=== PATIENT | female | born 1940 | race Caucasian/White ===

== ENCOUNTER 2016-05-14 14:58 | Emergency (ER) | payer OTHER ==
[~2016-05-14 14:58] MED LIST: ALBUTEROL0.09 MG/A1 INH; AMLODIPINE BES2.5 M1 PO; AMOXICILLIN875 M1 PO; CITRATE OF MAG300 ML PO; DULCOLAX10 M1 RC; GOLYTELY PACKE1 EACH PO; IBUPROFEN600 M1 PO; LIPITOR10 M1 PO; METFORMIN HCL500 M3 PO; METFORMIN500 MG PO; MIRALAX17 G1 PO; Magic mouthwash PO; OMEPRAZOLE20 MG PO; OMEPRAZOLE40 M1 PO; PERCOCET 325 MG1 TA2 PO; PREDNISONE20 M1 PO; PRINIVIL5 M1 PO; ROBITUSSIN W/CO10 ML PO; TESSALON PERLE100 M1 PO; TESSALON PERLE100 MG PO; TRIAMCINOL0.1 %/453 TOP; TYLENOL325 MG PO; VALACYCLOVIR1 GM PO
[2016-05-14 15:54] LABS: ABSOLUTE BASOPHIL COUNT 0 /CUMM (0.0-0.2); ABSOLUTE EOSINOPHIL COUNT 0.1 /CUMM (0.0-0.7); ABSOLUTE GRANULOCYTE CT 12.4 /CUMM (1.4-6.5); ABSOLUTE LYMPH COUNT 1.2 /CUMM (1.2-3.4); ABSOLUTE MONOCYTE COUNT 0.1 /CUMM (0.10-0.60); BASOPHIL % 0 % (0.0-2.0); EOSINOPHIL % 0.4 % (0-5); MEAN CORPUSCULAR HGB 29.3 PG (27.0-31.0); MEAN CORPUSCULAR HGB CONC 33.6 G/DL (33.0-37.0); MEAN CORPUSCULAR VOLUME 87.3 FL (81.0-99.0); MEAN PLATELET VOLUME 7.8 FL (7.4-10.4); PLATELET COUNT 259 /CUMM (130-400); RED BLOOD CELL CT 5.27 /CUMM (4.20-5.40); WHITE BLOOD CELL COUNT 13.8 /CUMM (4.8-10.8)
[2016-05-14 16:04] LABS: GRANULOCYTE % 89.7 % (42.2-75.2)
--- NOTE | 2016-05-14 17:52 | ED GI/GU/ABDOMINAL COMPLAINT ---
History of Present Illness General Chief Complaint: Female Urogenital Problems Stated Complaint: UTI SYMPTOMS Source: patient Exam Limitations: physical impairment (def) Vital Signs & Intake/Output Vital Signs & Intake/Output Vital Signs Date Time Temp Pulse Resp B/P Pulse O2 O2 Flow FiO2 Ox Delivery Rate 05/14 1951 98.8 84 18 175/83 94 Room Air 05/14 1717 97.4 90 20 165/92 93 Room Air 05/14 1511 97.5 98 20 143/74 96 Room Air Allergies Coded Allergies: NO KNOWN ALLERGIES (11/28/15) Reconcile Medications Amlodipine Besylate 2.5 MG TAB 1 TAB PO DAILY HEART (Reported) Amoxicillin 875 MG TABLET 1 TAB PO BID pharyngitis Atorvastatin Calcium (Lipitor) 10 MG TAB 1 TAB PO DAILY CHOLESTEROL (Reported ) Benzonatate (Tessalon Perle) 100 MG CAPSULE 1 CAP PO TID cough Bisacodyl (Dulcolax) 10 MG SUPP.RECT 1 SUP RC DAILY CONSTIPATION Ciprofloxacin HCl (Cipro) 500 MG TABLET 1 TAB PO BID uti Ibuprofen 600 MG TABLET 1 TAB PO Q6PRN PRN pain with food Lisinopril (Prinivil) 5 MG TABLET 1 TAB PO DAILY HTN (Reported) [Magic mouthwash] 5-10 ML PO Q6P PRN sore throat 1:1:1 maalox: viscous lidocaine:benadryl Magnesium Citrate (Citrate Of Magnesia) 300 ML SOLUTION 296 ML PO ONCE CONSTIPATION Metformin HCl 500 MG TABLET 1 TAB PO DAILY DIABETES (Reported) Omeprazole 40 MG CAPSULE.DR 1 CAP PO DAILY GI (Reported) Peg 3350/Na Sulf,Bicarb,Cl/KCl (Golytely Packet) 1 EACH POWD.PACK 1 PAC PO ONCE PRN CONSTIPATION MIX POWDER WITH 8 OZ OF WATER IF CONSTIPATED Polyethylene Glycol 3350 (Miralax) 17 GM POWD.PACK 1 PAC PO DAILY PRN CONSTIPATION dissolve in water Triage Note: PT IS DEAF AND COMMUNICATES THROUGH WRITING ON PAPER, POOR HISTORIAN EVEN THROUGH WRITING. STATES YESTERDAY SHE WENT TO [place] AND THEY GAVE HER A DIAPER BECAUSE THEY DON'T WANT WET PANTS. STATES I THINK THAT THEY GAVE HER MEDICINE THAT IS BURNING HER URINE. MEDICINE IS FOR KIDNEYS. Triage Nurses Notes Reviewed? yes ? n Is pt currently ? No Onset: Abrupt Duration: day(s): (2) Timing: recent history Quality/Severity: burning Location: urethral Radiation: no radiation HPI: 75-year-old female that is def comes into emergency room with complaints of burning with urination. Denies any fever chills back pain vomiting. Denies any chest pain shortness of breath. Patient reports some mild lower abdominal pain. Denies any other associated symptoms. Symptoms began yesterday. (MARLEY SHINE) Past History Travel History Traveled to [place] past 21 day No Medical History Any Pertinent Medical History? see below for history Neurological: DEAF (CONGENITAL) EENT: NONE Cardiovascular: hypertension, hyperlipidemia Respiratory: NONE Gastrointestinal: ACID REFLUX Hepatic: NONE Renal: NONE Musculoskeletal: NONE Psychiatric: NONE Endocrine: diabetes History of CDIFF: No Surgical History Surgical History: cholecystectomy Psychosocial History What is your primary language Hungarian Tobacco Use: Never used ETOH Use: denies use Illicit Drug Use: denies illicit drug use Family History Hx Contributory? No (MARLEY SHINE) Review of Systems Review of Systems Constitutional: Reports: no symptoms. EENTM: Reports: no symptoms. Respiratory: Reports: no symptoms. Cardiovascular: Reports: no symptoms. GI: Reports: see HPI. Genitourinary: Reports: see HPI. Musculoskeletal: Reports: no symptoms. Skin: Reports: no symptoms. Neurological/Psychological: Reports: no symptoms. Hematologic/Endocrine: Reports: no symptoms. Immunologic/Allergic: Reports: no symptoms. All Other Systems: Reviewed and Negative (MARLEY SHINE) Physical Exam Physical Exam General Appearance: well developed/nourished, no apparent distress, alert Head: atraumatic, normal appearance Eyes: Bilateral: normal appearance. Ears, Nose, Throat, Mouth: hearing grossly normal, moist mucous membrane Neck: normal inspection Respiratory: normal breath sounds, no respiratory distress Cardiovascular: regular rate/rhythm Gastrointestinal: soft, tenderness (mild across lower abdomen) Pelvic: normal external exam Back: normal inspection Extremities: normal range of motion Neurologic/Psych: awake, alert, oriented x 3, normal gait Skin: intact, normal color Core Measures ACS in differential dx? No Severe Sepsis Present: No Septic Shock Present: No (MARLEY SHINE) Progress Differential Diagnosis: AAA, appendicitis, biliary colic, bowel obstruction, colon cancer, cholecystitis, diverticulitis, ectopic , gastritis, hepatitis, hernia, ischemic bowel, inflamm bowel dis, intrauterine , kidney stone, Martha-Marycarmen tear, ovarian cyst, ovarian torsion, pancreatitis, PID/cervicitis, SBO, UTI/pyelo Plan of Care: Orders Procedure Date/time Status Add-on Test (ER Only) 05/14 2206 Active Add-on Test (ER Only) 05/14 1629 Active CULTURE,URINE 05/14 1541 Active URINALYSIS 05/14 1513 Complete COMPREHENSIVE METABOLIC PANEL 05/14 1513 Complete CBC WITHOUT DIFFERENTIAL 05/14 1513 Complete Laboratory Tests 05/14/16 1541: Urine Color STRAW, Urine Clarity TURBD H, Urine pH 6.0, Ur Specific [place] 1.025, Urine Protein >=300 H, Urine Ketones NEG, Urine Nitrite NEG, Urine Bilirubin NEG, Urine Urobilinogen 0.2, Ur Leukocyte Esterase LARGE H, Ur Microscopic SEDIMENT EXAMINED, Urine WBC PACKD H, Urine Hemoglobin LARGE H, Urine Glucose NEG 05/14/16 1539: Anion Gap 15, Estimated GFR 44 L, BUN/Creatinine Ratio 20.8, Glucose 141 H, Calcium 9.9, Total Bilirubin 2.4 H, AST 26, ALT 40, Alkaline Phosphatase 108, Total Protein 7.8, Albumin 4.6, Globulin 3.2, Albumin/Globulin Ratio 1.4, CBC w Diff NO MAN DIFF REQ, RBC 5.27, MCV 87.3, MCH 29.3, RDW 13.0, MPV 7.8, Gran % 89.7 H, Lymphocytes % 9.0 L, Monocytes % 0.9 L, Eosinophils % 0.4, Basophils % 0 L, Absolute Granulocytes 12.4 H, Absolute Lymphocytes 1.2, Absolute Monocytes 0.1 L, Absolute Eosinophils 0.1, Absolute Basophils 0, PUBS MCHC 33.6 Microbiology 05/14 1541 URINE ROUT: Urine Culture - RECD Diagnostic Imaging: Viewed by Me: CT Scan. Discussed w/RAD: CT Scan. Radiology Impression: EXAM TYPE: CAT - CT ABD & PELVIS W/O IV CONTRAS EXAMINATION: CT ABDOMEN AND PELVIS WITHOUT CONTRAST CLINICAL INFORMATION: Multiple prior exams including CAT scan 12/31/2015, 03/22/2012. COMPARISON: None. TECHNIQUE: Multidetector volumetric imaging was performed from the superior aspect of the liver through the pubic symphysis. Sagittal and coronal reformatted images were obtained on the technologist's workstation. DLP: 633.25 mGy-cm. FINDINGS: LUNG BASES: The visualized lung bases are unremarkable. LIVER, GALLBLADDER, AND BILIARY TREE: Diffuse fatty change of liver with low attenuation of liver parenchyma. There is hepatomegaly. Right lobe liver measures 21 cm superior inferior. 1 cm hypodense lesion posterior right lobe of liver segment 7, unchanged since prior 2012 studies, most consistent with a hepatic cyst. Status post cholecystectomy. No bile duct dilatation. PANCREAS: There is fatty atrophy of the pancreas. SPLEEN: Unremarkable. ADRENAL GLANDS: Unremarkable. 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 This is unchanged since CAT scan of 2012. There are several small calcifications measuring between 1 mm and 4 mm in the lower pole. No stone in ureter. No dilatation of ureter. BLADDER : Bladder is empty. GASTROINTESTINAL TRACT: Diffuse diverticulosis with diverticula throughout the colon. No diverticulitis. No acute change of the bowel. No bowel wall thickening or edema. The appendix is normal. The small bowel loops are normal. ABDOMINAL WALL: Surgical mesh at the anterior abdominal wall. No ventral wall hernia. LYMPH NODES: Normal. VASCULAR: Atherosclerotic vascular calcifications of aorta and iliac arteries. PELVIC VISCERA: Uterus is anteverted. Calcified fibroids. No adnexal abnormality. OSSEOUS STRUCTURES: Multilevel degenerative change of the spine with endplate spurs and facet joint arthrosis. IMPRESSION: 1. No acute change of abdomen or pelvis. 2. Diverticulosis of the colon. No acute change of bowel. 3. Diffuse fatty change of liver. Hepatomegaly. DICTATED BY: KOKO LOTT MD DATE/TIME DICTATED:05/14/161836 CRISIS SPECIALIST:CHRISTIE DATE/TIME TRANSCRIBED:05/14/161836 Initial ED EKG: none (MARLEY SHINE) Departure Departure Disposition: HOME OR SELF CARE Condition: Stable Clinical Impression Primary Impression: UTI (urinary tract infection) Referrals: David NICHOLE MD (PCP/Family) Additional Instructions: Take ciprofloxacin as prescribed. Rest. Drink plenty of fluids. Return if any fever chills vomiting. Return if any increased abdominal pain chest pain shortness of breath. Have your bilirubin level rechecked which is a liver function test which was slightly elevated here in the emergency room but is not related to your symptoms or why you are here. Please go over all results of today's visit with your primary care doctor. Contact your primary care doctor to let them know you were here in the emergency room. There may be nonspecific findings which may not be related to your visit today here in the emergency room but may require further evaluation and chronic monitoring by your primary care doctor. If you had a laceration today the chance of foreign body always remains. You should follow-up with your primary care doctor for recheck in 3-5 days for a wound check. If you had an x-ray done there is a chance that a fracture could have been missed on initial read and you should follow-up with your primary care doctor for repeat x-rays if symptoms persist. If your blood pressure was elevated here in the emergency room please have rechecked by her primary care doctor within the next 48 hours by your primary care doctor. If you were prescribed a narcotic here in the emergency room or any type of controlled substances you're not allowed to drive while taking this medication or operate any type of heavy machinery. Narcotics can make you feel lightheaded dizziness nausea and can cause constipation. You may need to worm picker a stool softener. Thank you for choosing [facility] emergency room. Please return to the emergency room immediately if you have any other concerns worsening of symptoms. Departure Forms: Customer Survey General Discharge Information Prescriptions: Current Visit Scripts Ciprofloxacin HCl (Cipro) 1 TAB PO BID #14 TAB Comments 05/14/2016 10:06:39 PM Patient is nontoxic-appearing. Patient is in no apparent distress. Patient resting comfortably in room. Patient has burning with urination. No acute findings on CAT scan. Symptoms are most consistent with uncomplicated UTI. Follow-up with primary care doctor. Return if any other concerns worsening symptoms. Patient understands and agrees with plan of care. case discussed with dr diggs. (MARLEY SHINE) PA/LEASE ATTENDANT Co-Sign Statement Statement: ED Attending supervision documentation- x I saw and evaluated the patient. I have also reviewed all the pertinent lab results and diagnostic results. I agree with the findings and the plan of care as documented in the PA's/LEASE ATTENDANT's documentation. [] I have reviewed the ED Record and agree with the PA's/LEASE ATTENDANT's documentation. [] Additions or exceptions (if any) to the PAs/LEASE ATTENDANT's note and plan are summarized below: [] (RASHEL SU,SWAPNA)
[2016-05-14 19:52] VITALS: BP 175/83
--- NOTE | 2016-05-14 20:34 | CT SCAN REPORT ---
EXAMINATION: CT ABDOMEN AND PELVIS WITHOUT CONTRAST CLINICAL INFORMATION: Multiple prior exams including CAT scan 12/31/2015, 03/22/2012. COMPARISON: None. TECHNIQUE: Multidetector volumetric imaging was performed from the superior aspect of the liver through the pubic symphysis. Sagittal and coronal reformatted images were obtained on the technologist's workstation. DLP: 633.25 mGy-cm. FINDINGS: LUNG BASES: The visualized lung bases are unremarkable. LIVER, GALLBLADDER, AND BILIARY TREE: Diffuse fatty change of liver with low attenuation of liver parenchyma. There is hepatomegaly. Right lobe liver measures 21 cm superior inferior. 1 cm hypodense lesion posterior right lobe of liver segment 7, unchanged since prior 2012 studies, most consistent with a hepatic cyst. Status post cholecystectomy. No bile duct dilatation. PANCREAS: There is fatty atrophy of the pancreas. SPLEEN: Unremarkable. ADRENAL GLANDS: Unremarkable. 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 This is unchanged since CAT scan of 2011. There are several small calcifications measuring between 1 mm and 4 mm in the lower pole. No stone in ureter. No dilatation of ureter. BLADDER: Bladder is empty. GASTROINTESTINAL TRACT: Diffuse diverticulosis with diverticula throughout the colon. No diverticulitis. No acute change of the bowel. No bowel wall thickening or edema. The appendix is normal. The small bowel loops are normal. ABDOMINAL WALL: Surgical mesh at the anterior abdominal wall. No ventral wall hernia. LYMPH NODES: Normal. VASCULAR: Atherosclerotic vascular calcifications of aorta and iliac arteries. PELVIC VISCERA: Uterus is anteverted. Calcified fibroids. No adnexal abnormality. OSSEOUS STRUCTURES: Multilevel degenerative change of the spine with endplate spurs and facet joint arthrosis. IMPRESSION: 1. No acute change of abdomen or pelvis. 2. Diverticulosis of the colon. No acute change of bowel. 3. Diffuse fatty change of liver. Hepatomegaly.
[2016-05-14] MEDS ORDERED: CIPRO500 M1 PO (20:53)
== END 2016-05-14 21:09 ==
LOC: ERH 14:58
PROVIDERS: Emergency Medicine
DX: N39.0 Urinary tract infection, site not specified (principal)
CPT/HCPCS: 74176; 81001; 87086

== ENCOUNTER 2016-06-19 08:40 | Emergency (ER) | payer OTHER ==
[~2016-06-19] VITALS: Ht 154.9 cm; Wt 82.1 kg
[~2016-06-19 08:40] MED LIST changes: +CIPRO500 M1 PO
[2016-06-19 08:45] VITALS: BP 177/83
--- NOTE | 2016-06-19 09:23 | RADIOLOGY REPORT ---
EXAMINATION: XR FINGER, RIGHT CLINICAL INFORMATION: Pain after using can't open her COMPARISON: None TECHNIQUE: Three views of the right fifth finger. FINDINGS: Osseous alignment is anatomic. No acute fracture is seen. No significant focal soft tissue abnormality is identified. Tiny calcific density along the ulnar aspect of the wrist has a chronic appearance. Moderate degenerative change is noted at the basal joint of the thumb. IMPRESSION: No acute findings identified in the fifth digit.
--- NOTE | 2016-06-19 09:28 | ED HAND/WRIST INJURY COMPLAINT ---
History of Present Illness General Chief Complaint: Hand or Wrist Injury Stated Complaint: PINKY RINGER ON RIGHT HAND SWOLLEN Source: patient Exam Limitations: physical impairment Vital Signs & Intake/Output Vital Signs & Intake/Output Vital Signs Date Time Temp Pulse Resp B/P Pulse O2 O2 Flow FiO2 Ox Delivery Rate 06/19 0845 97.1 86 20 177/83 96 Room Air Room Air Allergies Coded Allergies: NO KNOWN ALLERGIES (11/28/15) Reconcile Medications Amlodipine Besylate 2.5 MG TABLET 1 TAB PO DAILY HEART (Reported) Atorvastatin Calcium (Lipitor) 10 MG TABLET 1 TAB PO DAILY CHOLESTEROL ( Reported) Lisinopril (Prinivil) 5 MG TABLET 1 TAB PO DAILY HTN (Reported) Metformin HCl 500 MG TABLET 1 TAB PO DAILY DIABETES (Reported) Omeprazole 40 MG CAPSULE.DR 1 CAP PO DAILY GI (Reported) Polyethylene Glycol 3350 (Miralax) 17 GM POWD.PACK 1 PAC PO DAILY PRN CONSTIPATION dissolve in water Triage Note: PT TO ED S/P HURT RIGHT PINKY FINGER WHILE 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 Triage Nurses Notes Reviewed? yes Duration: day(s): (3), constant, continues in ED Timing: recent history Injury Environment: home Severity: moderate, severe Pain/Injury Location: Right: 5th finger. No Modifying Factors: none HPI: 75-year-old female comes into emergency room for further evaluation of right fifth finger pain. Patient reports that she injured it while opening up a can 3 days ago. Since this is swelling. Sharp throbbing pain. There is no laceration or cut to the skin. Patient comes in seeking further evaluation. Patient is deaf and nonverbal. Information communicated through writing (MARLEY SHINE) Past History Travel History Traveled to [place] past 21 day No Medical History Any Pertinent Medical History? see below for history Neurological: DEAF (CONGENITAL) EENT: NONE Cardiovascular: hypertension, hyperlipidemia Respiratory: NONE Gastrointestinal: ACID REFLUX Hepatic: NONE Renal: NONE Musculoskeletal: NONE Psychiatric: NONE Endocrine: diabetes Blood Disorders: NONE Cancer(s): NONE CAR EXAMINER/Reproductive: NONE History of CDIFF: No Surgical History Surgical History: cholecystectomy Psychosocial History What is your primary language Faroese Tobacco Use: Never used ETOH Use: denies use Illicit Drug Use: denies illicit drug use Family History Hx Contributory? No (MARLEY SHINE) Review of Systems Review of Systems Constitutional: Reports: no symptoms. EENTM: Reports: no symptoms. Respiratory: Reports: no symptoms. Cardiovascular: Reports: no symptoms. GI: Reports: no symptoms. Genitourinary: Reports: no symptoms. Musculoskeletal: Reports: see HPI. Skin: Reports: no symptoms. Neurological/Psychological: Reports: no symptoms. Hematologic/Endocrine: Reports: no symptoms. Immunologic/Allergic: Reports: no symptoms. All Other Systems: Reviewed and Negative (MARLEY SHINE) Physical Exam Physical Exam General Appearance: well developed/nourished Head: atraumatic Eyes: Bilateral: normal appearance. Ears, Nose, Throat: normal ENT inspection, hearing grossly normal Neck: normal inspection Cardiovascular/Respiratory: no respiratory distress Back: normal inspection Hand Left: normal inspection Hand Right: 5th finger, swelling, limited range of motion, no erythema, no warmth, no laceration, Neurologic/Tendon: normal sensation, normal motor functions, responds to pain, no evidence tendon injury, no pulse deficit Skin: intact, normal color, warm/dry Lymphatic: no anterior cervical juan (MARLEY SHINE) Progress Differential Diagnosis: abscess, cellulitis, compartment syndrome, dislocation, felon, fracture, gout, paronychia, septic arthritis, sprain, tenosynovitis Plan of Care: 06/19/2016 9:49:25 AM No evidence of acute fracture. Fourth and fifth finger terri taped together. Patient clinically looks well. Nontoxic-appearing. In no apparent distress. Diagnostic Imaging: Viewed by Me: Radiology Read. Discussed w/RAD: Radiology Read. Radiology Impression: EXAM TYPE: RAD - XRY-FINGERS, RIGHT EXAMINATION: XR FINGER , RIGHT CLINICAL INFORMATION: Pain after using can't open her COMPARISON: None TECHNIQUE: Three views of the right fifth finger. FINDINGS: Osseous alignment is anatomic. No acute fracture is seen. No significant focal soft tissue abnormality is identified. Tiny calcific density along the ulnar aspect of the wrist has a chronic appearance. Moderate degenerative change is noted at the basal joint of the thumb. IMPRESSION: No acute findings identified in the fifth digit. DICTATED BY: JEANNA LEI MD (MARLEY SHINE) Departure Departure Disposition: HOME OR SELF CARE Condition: Stable Clinical Impression Primary Impression: Sprain of right little finger Referrals: David NICHOLE MD (PCP/Family) Additional Instructions: Rest. Ice. If not better in 3-5 days follow-up with orthopedic doctor. There is no signs of fracture on the x-ray. Return if any other concerns worsening symptoms. Please go over all results of today's visit with your primary care doctor. Contact your primary care doctor to let them know you were here in the emergency room. There may be nonspecific findings which may not be related to your visit today here in the emergency room but may require further evaluation and chronic monitoring by your primary care doctor. If you had a laceration today the chance of foreign body always remains. You should follow-up with your primary care doctor for recheck in 3-5 days for a wound check. If you had an x-ray done there is a chance that a fracture could have been missed on initial read and you should follow-up with your primary care doctor for repeat x-rays if symptoms persist. If your blood pressure was elevated here in the emergency room please have rechecked by her primary care doctor within the next 48 hours by your primary care doctor. If you were prescribed a narcotic here in the emergency room or any type of controlled substances you're not allowed to drive while taking this medication or operate any type of heavy machinery. Narcotics can make you feel lightheaded dizziness nausea and can cause constipation. You may need to supervisor opening and picking a stool softener. Thank you for choosing [facility] emergency room. Please return to the emergency room immediately if you have any other concerns worsening of symptoms. Departure Forms: Customer Survey General Discharge Information (MARLEY SHINE) PA/IMAGING CENTER MANAGER Co-Sign Statement Statement: ED Attending supervision documentation- [X] I saw and evaluated the patient. I have also reviewed all the pertinent lab results and diagnostic results. I agree with the findings and the plan of care as documented in the PA's/IMAGING CENTER MANAGER's documentation. [X] I have reviewed the ED Record and agree with the PA's/IMAGING CENTER MANAGER's documentation. [] Additions or exceptions (if any) to the PAs/IMAGING CENTER MANAGER's note and plan are summarized below: [] (CLEO SU,LISSY Zaidi)
== END 2016-06-19 09:41 ==
LOC: ERH 08:40
DX: S63.616A Unspecified sprain of right little finger, initial encounter (principal); X58.XXXA Exposure to other specified factors, initial encounter; Y93.89 Activity, other specified
CPT/HCPCS: 73140-RT

== ENCOUNTER 2017-05-09 09:13 | Emergency (ER) | payer OTHER ==
[~2017-05-09] VITALS: Ht 152.4 cm; Wt 83.9 kg
[~2017-05-09 09:13] MED LIST changes: +MECLIZINE HCL25 M2 PO; +OMEPRAZOLE20 M2 PO; +TRANSDERM-SCOP1 EAC1 TD
--- NOTE | 2017-05-09 09:25 | ED GI/GU/ABDOMINAL COMPLAINT ---
History of Present Illness General Chief Complaint: General Adult Stated Complaint: R SIDED ABD PAIN AND DARK STOOLS Source: patient, old records Exam Limitations: no limitations Vital Signs & Intake/Output Vital Signs & Intake/Output Vital Signs Date Time Temp Pulse Resp B/P B/P Pulse O2 O2 Flow FiO2 Mean Ox Delivery Rate 05/09 1220 86 186/84 05/09 1220 86 186/84 05/09 1153 98.2 86 16 186/84 98 Room Air Room Air 05/09 0919 98.2 85 18 183/83 98 Room Air Allergies Coded Allergies: NO KNOWN ALLERGIES (11/28/15) Reconcile Medications Amlodipine Besylate 2.5 MG TABLET 1 TAB PO DAILY HEART (Reported) Atorvastatin Calcium (Lipitor) 10 MG TABLET 1 TAB PO QPM CHOLESTEROL ( Reported) Ciprofloxacin HCl (Cipro) 500 MG TABLET 1 TAB PO BID uti Lisinopril (Prinivil) 5 MG TABLET 1 TAB PO DAILY HTN (Reported) Meclizine HCl 25 MG TAB.CHEW 1 TAB PO TID PRN DIZZINESS Metformin HCl 500 MG TABLET 1 TAB PO QPM DIABETES (Reported) Omeprazole 20 MG CAPSULE.DR 1 CAP PO DAILY AC GI (Reported) Scopolamine (Transderm-Scop) 1 MG/3 DAY PATCH.TD.3 1 PAT TD AD PRN DIZZINESS PLACE BEHIND THE EAR FOR THREE DAYS FOR YOUR SYMPTOMS Triage Note: 76 YO FEMALE TO TRIAGE C/O BLACK STOOL AND R SIDED BACK PAIN SINCE YESTERDAY, DENIES NV. PT DEAF, COMMUNCATES WITH STAFF BY WRITING. Triage Nurses Notes Reviewed? yes ? N Is pt currently ? No Onset: Abrupt Duration: day(s): (1) Timing: recent history Location: right lower quadrant Radiation: no radiation Activities at Onset: none Prior Abdominal Problems: none Associated Symptoms: dark stool HPI: This is a very sathish 76-year-old female with history of hypertension, diabetes, previous cystectomy who presents to the ER for chief complaint of black stools yesterday. Patient is deaf and does not lip read - only uses written communication. She reports a few episodes of dark stools yesterday. No nausea vomiting. She states she had some right lower quadrant abdominal pain yesterday but not today. History of previous colonoscopy [place] [address] Deleon which found polyp with some hemorrhoids. Patient does have history of diverticulosis. She denies any fever or chills or flank pain. No urinary symptoms. She does not take any anticoagulation and eyes any alcohol use. History of previous cholecyst[place] [address] Wood. No other symptoms. Past History Travel History Traveled to [place] past 21 day No Medical History Any Pertinent Medical History? see below for history Neurological: DEAF (CONGENITAL) EENT: DEAF Cardiovascular: hypertension, hyperlipidemia Respiratory: NONE Gastrointestinal: ACID REFLUX Hepatic: NONE Renal: NONE Musculoskeletal: NONE Psychiatric: NONE Endocrine: diabetes Blood Disorders: NONE Cancer(s): NONE OCCUPATIONAL THERAPIST HOME BASED/Reproductive: NONE History of CDIFF: No Surgical History Surgical History: cholecystectomy Psychosocial History What is your primary language Chinese Tobacco Use: Never used Family History Hx Contributory? No Review of Systems Review of Systems Constitutional: Denies: chills, fever. EENTM: Reports: no symptoms. Respiratory: Denies: cough, short of breath. Cardiovascular: Denies: chest pain, palpitations. GI: Reports: see HPI (DARK STOOL), abdominal pain. Genitourinary: Reports: no symptoms. Musculoskeletal: Denies: back pain. Skin: Reports: no symptoms. Neurological/Psychological: Denies: confusion. Hematologic/Endocrine: Denies: bruising, bleeding, polyuria, polydipsia. Immunologic/Allergic: Denies: splenectomy. All Other Systems: Reviewed and Negative Physical Exam Physical Exam General Appearance: well developed/nourished, alert, awake, mild distress, obese Head: atraumatic, normal appearance Eyes: Bilateral: normal appearance, PERRL, EOMI. Ears, Nose, Throat, Mouth: moist mucous membrane, PATIENT IS DEAF Neck: normal inspection, supple, full range of motion Respiratory: normal breath sounds, chest non-tender, no respiratory distress Cardiovascular: regular rate/rhythm Peripheral Pulses: 2+ radial (R), 2+ radial (L) Gastrointestinal: normal bowel sounds, soft, non-tender Rectal: BROWN OB NEGATIVE STOOL Back: normal inspection, normal range of motion Extremities: normal range of motion Neurologic/Psych: no motor/sensory deficits, awake, alert, oriented x 3 Skin: intact, normal color, warm/dry Core Measures ACS in differential dx? No Sepsis Present: No Sepsis Focused Exam Completed? No Progress Differential Diagnosis: appendicitis, bowel obstruction, colon cancer, ischemic bowel, inflamm bowel dis, kidney stone, ovarian cyst, perforated viscous, UTI/ pyelo Plan of Care: Orders Procedure Date/time Status URINALYSIS 05/09 935 Complete PARTIAL THROMBOPLASTIN TIME 05/09 935 Complete PROTHROMBIN TIME 05/09 935 Complete LACTIC ACID 05/09 935 Complete COMPREHENSIVE METABOLIC PANEL 05/09 935 Complete CBC WITHOUT DIFFERENTIAL 05/09 935 Complete TYPE & SCREEN (NOT X-MATCH) 05/09 935 Active Laboratory Tests 05/09/17 1025: Anion Gap 15, Estimated GFR > 60, BUN/Creatinine Ratio 18.9, Glucose 129 H, Lactic Acid 1.8, Calcium 9.9, Total Bilirubin 1.5 H, AST 37 H, ALT 45, Alkaline Phosphatase 71, Total Protein 7.6, Albumin 4.5, Globulin 3.1, Albumin/ Globulin Ratio 1.5, PT 10.0, INR 0.95, APTT 31, CBC w Diff NO MAN DIFF REQ, RBC 4.66, MCV 87.3, MCH 29.3, RDW 14.4, MPV 8.4, Gran % 68.4, Lymphocytes % 21.9, Monocytes % 6.8, Eosinophils % 2.2, Basophils % 0.7, Absolute Granulocytes 4.6, Absolute Lymphocytes 1.5, Absolute Monocytes 0.5, Absolute Eosinophils 0.1, Absolute Basophils 0, PUBS MCHC 33.6, Urine Color STRAW, Urine Clarity CLEAR, Urine pH 6.0, Ur Specific [place] 1.010, Urine Protein NEG, Urine Ketones NEG, Urine Nitrite NEG, Urine Bilirubin NEG, Urine Urobilinogen 0.2, Ur Leukocyte Esterase NEG, Ur Microscopic EXAM NOT REQUIRED, Urine Hemoglobin NEG, Urine Glucose NEG RESULTS OF CT DISCUSSED WITH PATIENT, SHE IS UNAWARE OF ANY PREVIOUS HYDRONEPHROSIS. SHE HAS SEEN [facility] BEFORE AND WANTS TO FOLLOW UP WITH THEM. SHE WILL BE DISCHARGED WITH A COPY OF THE CT AND WILL ALSO FOLLOW UP WITH DR NICHOLE. Diagnostic Imaging: Viewed by Me: CT Scan. Discussed w/RAD: CT Scan. Radiology Impression: PATIENT: ADITYA FRANK PRESENT AGE: 76 PATIENT ACCOUNT NO: [id number] : 39 LOCATION: [facility] ORDERING PHYSICIAN: Georgiana Marroquin MD SERVICE DATE: 05/09/17-110 EXAM TYPE: CAT - CT ABD & PELVIS W IV CONTRAST EXAMINATION: CT ABDOMEN AND PELVIS WITH CONTRAST CLINICAL INFORMATION: 76-year-old female with right lower quadrant abdominal pain. History of cholecystectomy. COMPARISON: 05/14/2016 TECHNIQUE: Multidetector volumetric imaging was performed of the abdomen and pelvis following IV administration of 95 mL of Optiray 320 intravenous contrast. Sagittal and coronal reformatted images were obtained on the technologist's workstation. DLP: 498 mGy-cm FINDINGS: LUNG BASES: Mild atelectasis in dependent aspect of each lower lobe. Again noted is a thin-walled cyst in the posterolateral right lower lobe. No pericardial or pleural effusion. LIVER, GALLBLADDER, AND BILIARY TREE: There is hepatomegaly with right hepatic lobe measuring approximately 22 cm in craniocaudal dimension. There is a 1.1 cm cyst in the hepatic segment 7. A 0.6 cm cyst is present within hepatic segment 6. Gallbladder is surgically absent. No intrahepatic or extrahepatic bile duct dilatation. PANCREAS: Chronic atrophy and partial fatty replacement of the pancreas. No pancreatic ductal dilatation or peripancreatic edema. SPLEEN: Unremarkable. ADRENAL GLANDS: Unremarkable. KIDNEYS AND URETERS: The right kidney has normal size, cortical thickness and attenuation. Mild prominence of the right extrarenal pelvis without right-sided hydroureteronephrosis or urolithiasis. Again noted is a chronic left ureteropelvic junction obstruction. There is chronic, severe left hydronephrosis and left renal cortical atrophy. The left ureter is unremarkable. BLADDER: Unremarkable. GASTROINTESTINAL TRACT: Stomach is underdistended. Bowel loops are normal in size. Appendix is normal. Pancolonic diverticulosis without evidence of acute diverticulitis. No pneumoperitoneum, abscess or ascites. ABDOMINAL WALL: The mesh of the anterior abdominal wall appears intact. No recurrent hernia. LYMPH NODES: No pathologic sized lymph nodes within the abdomen or pelvis. VASCULAR: Mild, scattered atherosclerotic calcification of aorta and iliac arteries without aneurysm. PELVIC VISCERA: 1.2 cm calcified leiomyoma of the uterine fundus. Probable subserosal leiomyoma of the left uterine body, as well. No pelvic free fluid. 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 Within the lumbar spine, intervertebral disc degeneration is most pronounced on the right at L2-L3. There is multilevel facet osteoarthritis of the lumbar spine. Bone island is present within the left iliac bone (image 56, series 2). No suspicious osseous lesion. IMPRESSION: 1. Pancolonic diverticulosis without evidence of diverticulitis. 2. Chronic left ureteropelvic junction obstruction. 3. No evidence of recurrent abdominal wall hernia. 4. Leiomyomatous uterus. 5. No acute findings in the abdomen or pelvis compared to 05/14/2016. DICTATED BY: Aaron Campos MD DATE/TIME DICTATED:05/09/171157 DISABILITY INSURANCE CLAIM EXAMINER:CHRISTIE DATE/TIME TRANSCRIBED:05/09/171157 CONFIDENTIAL, DO NOT COPY WITHOUT APPROPRIATE AUTHORIZATION. <Electronically signed in Other Vendor System> SIGNED BY: Aaron Campos MD 05/09/17 1216 Initial ED EKG: none Departure Departure Time of Disposition: 1232 Disposition: HOME OR SELF CARE Condition: Stable Clinical Impression Primary Impression: Hydronephrosis Referrals: Dominique SU,David Condon (PCP/Family) Additional Instructions: FOLLOW UP WITH YOUR PRIMARY CARE DOCTOR WELL WITH [facility] DISCUSSED REGARDING YOUR CT SCAN FINDINGS RETURN TO THE ER FOR ANY CHANGING OR WORSENING SYMPTOMS Departure Forms: Customer Survey General Discharge Information
[2017-05-09 10:47] LABS: ABSOLUTE BASOPHIL COUNT 0 /CUMM (0.0-0.2); ABSOLUTE EOSINOPHIL COUNT 0.1 /CUMM (0.0-0.7); ABSOLUTE GRANULOCYTE CT 4.6 /CUMM (1.4-6.5); ABSOLUTE LYMPH COUNT 1.5 /CUMM (1.2-3.4); ABSOLUTE MONOCYTE COUNT 0.5 /CUMM (0.10-0.60); BASOPHIL % 0.7 % (0.0-2.0); EOSINOPHIL % 2.2 % (0-5); GRANULOCYTE % 68.4 % (42.2-75.2); HEMATOCRIT 40.7 % (37-47); MEAN CORPUSCULAR HGB 29.3 PG (27.0-31.0); MEAN CORPUSCULAR HGB CONC 33.6 G/DL (33.0-37.0); MEAN CORPUSCULAR VOLUME 87.3 FL (81.0-99.0); MEAN PLATELET VOLUME 8.4 FL (7.4-10.4); PLATELET COUNT 233 /CUMM (130-400); RBC DISTRIBUTION WIDTH 14.4 % (11.5-14.5); RED BLOOD CELL CT 4.66 /CUMM (4.20-5.40); WHITE BLOOD CELL COUNT 6.7 /CUMM (4.8-10.8)
[2017-05-09 10:48] LABS: PTT 31 SEC (25-37)
--- NOTE | 2017-05-09 12:16 | CT SCAN REPORT ---
EXAMINATION: CT ABDOMEN AND PELVIS WITH CONTRAST CLINICAL INFORMATION: 76-year-old female with right lower quadrant abdominal pain. History of cholecystectomy. COMPARISON: 05/14/2016 TECHNIQUE: Multidetector volumetric imaging was performed of the abdomen and pelvis following IV administration of 95 mL of Optiray 320 intravenous contrast. Sagittal and coronal reformatted images were obtained on the technologist's workstation. DLP: 498 mGy-cm FINDINGS: LUNG BASES: Mild atelectasis in dependent aspect of each lower lobe. Again noted is a thin-walled cyst in the posterolateral right lower lobe. No pericardial or pleural effusion. LIVER, GALLBLADDER, AND BILIARY TREE: There is hepatomegaly with right hepatic lobe measuring approximately 22 cm in craniocaudal dimension. There is a 1.1 cm cyst in the hepatic segment 7. A 0.6 cm cyst is present within hepatic segment 6. Gallbladder is surgically absent. No intrahepatic or extrahepatic bile duct dilatation. PANCREAS: Chronic atrophy and partial fatty replacement of the pancreas. No pancreatic ductal dilatation or peripancreatic edema. SPLEEN: Unremarkable. ADRENAL GLANDS: Unremarkable. KIDNEYS AND URETERS: The right kidney has normal size, cortical thickness and attenuation. Mild prominence of the right extrarenal pelvis without right-sided hydroureteronephrosis or urolithiasis. Again noted is a chronic left ureteropelvic junction obstruction. There is chronic, severe left hydronephrosis and left renal cortical atrophy. The left ureter is unremarkable. BLADDER: Unremarkable. GASTROINTESTINAL TRACT: Stomach is underdistended. Bowel loops are normal in size. Appendix is normal. Pancolonic diverticulosis without evidence of acute diverticulitis. No pneumoperitoneum, abscess or ascites. ABDOMINAL WALL: The mesh of the anterior abdominal wall appears intact. No recurrent hernia. LYMPH NODES: No pathologic sized lymph nodes within the abdomen or pelvis. VASCULAR: Mild, scattered atherosclerotic calcification of aorta and iliac arteries without aneurysm. PELVIC VISCERA: 1.2 cm calcified leiomyoma of the uterine fundus. Probable subserosal leiomyoma of the left uterine body, as well. No pelvic free fluid. 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 Within the lumbar spine, intervertebral disc degeneration is most pronounced on the right at L2-L3. There is multilevel facet osteoarthritis of the lumbar spine. Bone island is present within the left iliac bone (image 56, series 2). No suspicious osseous lesion. IMPRESSION: 1. Pancolonic diverticulosis without evidence of diverticulitis. 2. Chronic left ureteropelvic junction obstruction. 3. No evidence of recurrent abdominal wall hernia. 4. Leiomyomatous uterus. 5. No acute findings in the abdomen or pelvis compared to 05/14/2016.
[2017-05-09 13:05] VITALS: BP 154/84
== END 2017-05-09 13:05 ==
LOC: ERH 09:13
PROVIDERS: Emergency Medicine
DX: N13.30 Unspecified hydronephrosis (principal)
CPT/HCPCS: 74177; 81003